=== PATIENT | male | born 1995 | race Caucasian/White ===

== ENCOUNTER 2019-10-12 20:52 | Emergency (ER) | payer BC, SELFPAY ==
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
[2019-10-12 21:05] VITALS: BP 169/90; PULSE 121; RESP 20; TEMP 36.2; O2SAT 98
== END 2019-10-12 21:43 | disposition home or self-care (01) ==
PROVIDERS: Emergency Provider Emergency Medicine; PCP Family Medicine
DX: S93.432A Sprain of tibiofibular ligament of left ankle, initial encounter (principal); X58.XXXA Exposure to other specified factors, initial encounter
CPT/HCPCS: 29515; 73610; 99283; A9270; L4350

== ENCOUNTER 2020-07-22 15:25 | Outpatient (CLI) | payer BC, SELFPAY ==
[2020-07-24 19:11] LABS: SARS-CoV-2 RNA PCR Positive
== END 2020-07-22 15:26 | disposition home or self-care (01) ==
LOC: CHSLAB 15:28
PROVIDERS: PCP Family Medicine; Visit Provider Family Medicine
DX: R05 Cough (principal); Z20.822 Contact with and (suspected) exposure to COVID-19
CPT/HCPCS: C9803; U0003; U0005

== ENCOUNTER 2021-05-23 11:06 | Outpatient (CLI) | payer BC, SELFPAY ==
--- NOTE | ~2021-05-23 | XR_ITS ---
XR ankle RT min 3V DATE: 05/23/2021 11:26 INDICATION: Right ankle and lateral foot intermittent pain; no known injury TECHNIQUE: 4 views of right ankle COMPARISON: None FINDINGS: No fracture or dislocation of the ankle or disruption of the ankle mortise is detected. IMPRESSION: Negative Reviewed, dictated and finalized at location B. 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
--- NOTE | ~2021-05-23 | XR_ITS ---
XR foot RT min 3V DATE: 05/23/2021 11:26 INDICATION: Lateral foot and ankle intermittent pain; no known injury. TECHNIQUE: 4 views COMPARISON: None FINDINGS: No fracture or dislocation, periosteal reaction or bone destruction, joint space narrowing or erosive change. 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
== END 2021-05-23 11:07 | disposition home or self-care (01) ==
LOC: CHSIMG 11:10
PROVIDERS: PCP Family Medicine; Visit Provider Family Medicine
DX: M25.571 Pain in right ankle and joints of right foot (principal)
CPT/HCPCS: 73610; 73630

== ENCOUNTER 2024-10-23 12:47 | Emergency (ER) | payer OTHER, SELFPAY ==
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
[2024-10-23 13:18] VITALS: BP 181/95; PULSE 103; RESP 16; TEMP 36.4; O2SAT 94
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
== END 2024-10-23 15:20 | disposition home or self-care (01) ==
LOC: ANHED 15:52
PROVIDERS: Emergency Provider Physician Assistant; PCP Family Medicine
DX: S16.1XXA Strain of muscle, fascia and tendon at neck level, initial encounter (principal); M47.812 Spondylosis without myelopathy or radiculopathy, cervical region; V53.6XXA Passenger in pick-up truck or van injured in collision with car, pick-up truck or van in traffic accident, initial encounter
CPT/HCPCS: 70450; 72125; 99284